=== PATIENT | female | born 1975 | race Caucasian/White ===

== ENCOUNTER → 2019-12-28 | Day surgery (SDC) | payer BC ==
[~2019-12-28] MED LIST: SERTRALINE HCL50 MG PO; SUPER THERAVIT1 EACH PO; ULTRAM 50MG TAB50 MG PO
--- NOTE | ~2019-12-28 | PROC ---
[facility] [address] [place] [address] PROCEDURE REPORT Name: ALMA ROSA VILLALBA Room: [facility].#: [id number] Admission: 12/28/19 Attend Phys: Simone Valentine DO Discharge: Date of : 77 Report #: [id number] THIS REPORT FOR: //name// cc: Manjinder Hobson Bruce R. DO ~ THIS REPORT FOR: //name// For GI report, please see the Provation report in [employer] content. By: 0654Medical Records Staff MELANIA /ABHISHEK
[2019-12-28 10:50] LABS: ABSOLUTE BASOPHILS 0.1 thou/uL (0.0-0.2); ABSOLUTE EOSINOPHILS 0.2 thou/uL (0.0-0.7); ABSOLUTE LYMPHOCYTES 1.8 thou/uL (0.8-5.3); ABSOLUTE MONOCYTES 0.3 thou/uL (0.0-1.2); ABSOLUTE NEUTROPHILS 3.4 thou/uL (1.6-8.1); BASOPHILS 0.9 %; EOSINOPHILS 3.7 %; HEMATOCRIT 41.2 % (37.0-47.0); LYMPHOCYTES 31.6 %; MCV 85.5 fL (80.0-100.0); MONOCYTES 5.1 %; MPV 9.5 fl. (7.2-11.1); NUCLEATED RBCS 0 /100WBC; PLATELET COUNT* 212 thou/uL (150-400); POLYS 58.7 %; RBC 4.82 mil/uL (4.20-5.00); RDW-CV 14.8 % (10.5-14.5); WBC 5.8 thou/uL (4.0-11.0)
[2019-12-28 10:51] LABS: CALCIUM 8.4 mg/dL (8.5-10.1); CREATININE 0.9 mg/dL (0.6-1.3); POTASSIUM 3.5 mmol/L (3.5-5.1)
[2019-12-28 10:56] LABS: ALBUMIN 3.3 g/dL (3.4-5.0); TOTAL BILIRUBIN 0.7 mg/dL (<0.1-1.0); TOTAL PROTEIN 7.2 g/dL (6.4-8.2)
[2019-12-28 11:53] LABS: ESR (SEDRATE) 25 mm/hr (0-20)
--- NOTE | 2020-01-01 15:08 | PATH ---
[address] [address] PATHOLOGY RPT PROCEDURE Name: PLACIDO VILLALBA Room: [facility].#: [id number] Admission: 12/28/19 Date of : 77 Discharge: Report #: [id number] Path Case #: [id number] [facility] Accession Number: [id number] . 01 Material submitted: . stomach - GASTRIC BIOPSY . 01 Clinical history: . Vomiting blood . 02 Diagnosis: Gastric biopsy: - Severe chronic active gastritis with abundant Helicobacter pylori organisms, negative for granulomas and dysplasia. . (PAPO:stephanie; 01/01/2020) [facility] 01/01/2020 1036 Local . 02 Comment: Special stain: H. pylori immuno . (PAPO:mmviolet; 01/01/2020) . 02 Electronically signed: . Asael Archer MD, Pathologist NPI- [id number] . 01 Gross description: . The specimen is received in formalin, labeled "Placido Villalba, gastric BX" and consists of multiple fragments of white-reyes tissue measuring 0.7 x 0.3 x 0.2 cm in aggregate which are entirely submitted in A1. ([facility]; 12/29/2019) JFQ/JFQ 12/29/2019 1323 Local . 02 Pathologist provided ICD-10: K29.50, B96.81 . 02 CPT . 760934, [id number] Specimen Comment: A courtesy copy of this report has been sent to [phone], [phone] Specimen Comment: [phone] Specimen Comment: Report sent to / DR FLOWERS Performed at: [address] [id number] MD Thiago Brar MD Phone: [phone] Performed at: [address] [place] [address] PATHOLOGY RPT PROCEDURE Name: PLACIDO VILLALBA Room: [facility]#: [id number] Admission: 12/28/19 Date of : 77 Discharge: Report #: [id number] Path Case #: [id number] [address] [id number] MD Asael Archer MD Phone: [phone]
== END | disposition home or self-care (01) ==
LOC: M.SUR
PROVIDERS: Internal Medicine Gastroenterology
DX: R10.13 Epigastric pain (principal); K29.50 Unspecified chronic gastritis without bleeding; B96.81 Helicobacter pylori [H. pylori] as the cause of diseases classified elsewhere; K92.0 Hematemesis; Z98.890 Other specified postprocedural states; Z98.84 Bariatric surgery status; Z90.49 Acquired absence of other specified parts of digestive tract; Z82.49 Family history of ischemic heart disease and other diseases of the circulatory system

== ENCOUNTER 2020-01-26 07:24 | Emergency (ER) | payer BC ==
[~2020-01-26] VITALS: Ht 170.2 cm; Wt 108.9 kg
[2020-01-26] MEDS ORDERED: AUGMENTIN 875-1 EACH PO (07:58)
[2020-01-26] MEDS ORDERED: NORCO 5-325 TA1 EAC1 PO (07:58)
[2020-01-26 09:10] VITALS: BP 180/101
== END 2020-01-26 09:13 | disposition home or self-care (01) ==
LOC: M.ERS 07:24
DX: S61.012A Laceration without foreign body of left thumb without damage to nail, initial encounter (principal); W54.0XXA Bitten by dog, initial encounter; Y93.89 Activity, other specified; Y92.89 Other specified places as the place of occurrence of the external cause; Y99.8 Other external cause status